=== PATIENT | male | born 2005 | race Hispanic/Latino ===

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

== ENCOUNTER 2023-05-24 17:09 | Emergency (ER) | payer OTHER, SELFPAY ==
--- NOTE | 2023-05-24 17:15 | ED.WOUNDLAC ---
HPI - Wound/Laceration General Chief Complaint: Wound/Laceration Stated Complaint: Cut finger left hand Time Seen by Provider: 05/24/23 17:14 Source: patient Mode of arrival: ambulatory Limitations: no limitations History of Present Illness HPI narrative: Patient is a 17 year old male that presents with laceration to left index finger from a glass that shattered. 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 States the more he used the finger the more it continued to bleed. Patient is also having constipation for one week. States he has been using laxative to have a bowel movement. States after taking them he is able to go and it is soft. Patient reports he knows he doesn't drink enough water. Did call PCP and was unable to get in. Related Data Allergies Allergy/AdvReac Type Severity Reaction Status Date / Time No Known Allergies Allergy Unverified 05/24/23 17:20 Review of Systems Review of Systems: All systems reviewed & are unremarkable except as noted in HPI and below Constitutional: Constitutional: Denies body ache(s), Denies chills, Denies fatigue, Denies fever(s), Denies headache(s), Denies malaise and Denies weakness Eyes: Eyes: Denies blurry vision, Denies irritation and Denies loss of vision ENT: Denies otalgia, Denies headache(s), Denies nasal discharge, Denies sinus pain and Denies sore throat Cardiovascular: Cardiovascular: Denies chest pain, Denies irregular heart rhythm and Denies dyspnea Respiratory: Respiratory: Denies dyspnea Gastrointestinal: Gastrointestinal: Denies abdominal pain, Denies melena, Denies hematochezia, Reports constipation, Denies diarrhea, Denies nausea and Denies vomiting Musculoskeletal: Musculoskeletal: Denies back pain, Denies myalgias and Denies arthralgias Integumentary/Breasts: Skin/Breast: Denies pruritus, Denies rash and Reports wounds Neurologic: Denies headache(s), Denies loss of vision and Denies weakness Psychiatric: Psychiatric: Reports no additional psychiatric complaints Endocrine: Endocrine: Denies fatigue PMFSH Comments At time of signature, agree with nursing past medical, surgical, social and family history. There is no relevant family history pertinent to the presenting complaint. Exam Const: General: cooperative, healthy appearing, comfortable, no acute distress and well nourished Nutritional Appearance: well nourished Orientation/consciousness: patient oriented x3 Limitations: no limitations HENMT: Head: normal to inspection, normocephalic and atraumatic Ears: hearing grossly normal bilaterally and external ears normal Face/Nose/Sinus: Normal external nose present, normal facial exam and face symmetric Face and sinus: normal facial exam and face symmetric Mouth: Yes lip normal Eyes: General: appearance normal, both eyes and all related structures Alignment and Position: alignment normal and position normal Periorbital: periorbital findings normal Eyelids: eyelids normal Pupils: Equal, round and reactive pupils present EOM: EOMs intact bilaterally Neck: Neck: normal visual inspection, full ROM and supple Chest: Chest palpation & inspection: normal inspection of the chest Resp: Effort & Inspection: normal respiratory effort and able to speak in complete sentences Auscultation: clear to auscultation bilaterally Cardio: Rate: regular rate Rhythm: regular rhythm Heart sounds: S1 normal heart sound present and S2 normal heart sound present GI: Inspection: normal to inspection GI Palp: No abdominal tenderness, Yes Soft to palpation, No Tenderness to palpation present (GI), No Guarding due to palpation present (GI) and No Rebound tenderness present Skin: General skin exam: normal color and no rashes or lesions noted Neuro: General: patient oriented x3 and moves all extremities Cranial nerves: Yes Equal, round and reactive pupils present Speech: normal speech Gait exam (Neuro): Normal gait present Extrem: Ge
[2023-05-24 17:23] VITALS: BP 124/76; PULSE 87; RESP 16; TEMP 36.3; O2SAT 100
[2023-05-24] MEDS: LIDOCAINE HCL 1% LOCAL INJ 2 ML AMPUL INFILTRATE (17:32)
== END 2023-05-24 18:08 | disposition home or self-care (01) ==
PROVIDERS: Emergency Provider Nurse Practitioner Family; PCP Registered Nurse
DX: S61.211A Laceration without foreign body of left index finger without damage to nail, initial encounter (principal); W25.XXXA Contact with sharp glass, initial encounter
CPT/HCPCS: 12001; 99213; G0463

== ENCOUNTER 2023-05-31 13:38 | Emergency (ER) | payer OTHER, SELFPAY ==
[2023-05-31 13:49] VITALS: BP 107/65; PULSE 82; RESP 16; TEMP 36.6; O2SAT 100
--- NOTE | 2023-05-31 13:53 | ED.WOUNDLAC ---
HPI - Wound/Laceration General Chief Complaint: Wound/Laceration Stated Complaint: SUTURE REMOVAL Time Seen by Provider: 05/31/23 13:53 Source: patient Mode of arrival: ambulatory Limitations: no limitations History of Present Illness HPI narrative: Patient is a 17-year-old male that presents for suture removal. Patient had sutures placed 1 week ago after cutting index finger with glass. Patient has follow-up appointment the 25th with PCP for annual checkup. Patient states constipation has resolved since last week. Related Data Home Medications Medication Instructions Recorded Confirmed No Home Medications 05/31/23 05/31/23 Allergies Allergy/AdvReac Type Severity Reaction Status Date / Time No Known Allergies Allergy Verified 05/31/23 14:02 Review of Systems Review of Systems: All systems reviewed & are unremarkable except as noted in HPI and below Constitutional: Constitutional: Denies body ache(s), Denies chills, Denies fatigue, Denies fever(s), Denies headache(s), Denies malaise and Denies weakness Eyes: Eyes: Denies blurry vision, Denies irritation and Denies loss of vision ENT: Denies otalgia, Denies headache(s), Denies nasal discharge, Denies sinus pain and Denies sore throat Cardiovascular: Cardiovascular: Denies chest pain, Denies irregular heart rhythm and Denies dyspnea Respiratory: Respiratory: Denies dyspnea Gastrointestinal: Gastrointestinal: Denies abdominal pain, Denies melena, Denies hematochezia, Denies diarrhea, Denies nausea and Denies vomiting Musculoskeletal: Musculoskeletal: Denies back pain, Denies myalgias and Denies arthralgias Integumentary/Breasts: Skin/Breast: Denies pruritus and Denies rash Comments: Suture removal Neurologic: Denies headache(s), Denies loss of vision and Denies weakness Psychiatric: Psychiatric: Reports no additional psychiatric complaints Endocrine: Endocrine: Denies fatigue PMFSH Comments At time of signature, agree with nursing past medical, surgical, social and family history. There is no relevant family history pertinent to the presenting complaint. Exam Const: General: cooperative, healthy appearing, comfortable, no acute distress and well nourished Nutritional Appearance: well nourished Orientation/consciousness: patient oriented x3 Limitations: no limitations HENMT: Head: normal to inspection, normocephalic and atraumatic Ears: hearing grossly normal bilaterally and external ears normal Face/Nose/Sinus: Normal external nose present, normal facial exam and face symmetric Face and sinus: normal facial exam and face symmetric Mouth: Yes lip normal Eyes: General: appearance normal, both eyes and all related structures Alignment and Position: alignment normal and position normal Periorbital: periorbital findings normal Eyelids: eyelids normal Pupils: Equal, round and reactive pupils present EOM: EOMs intact bilaterally Neck: Neck: normal visual inspection, full ROM and supple Chest: Chest palpation & inspection: normal inspection of the chest Resp: Effort & Inspection: normal respiratory effort and able to speak in complete sentences Auscultation: clear to auscultation bilaterally Cardio: Rate: regular rate Rhythm: regular rhythm Heart sounds: S1 normal heart sound present and S2 normal heart sound present GI: Inspection: normal to inspection Skin: General skin exam: normal color and no rashes or lesions noted Trauma: laceration left 2nd finger linear ([address], wound completely healed), motor nerve function intact and sensation intact Neuro: General: patient oriented x3 and moves all extremities Cranial nerves: Yes Equal, round and reactive pupils present Speech: normal speech Gait exam (Neuro): Normal gait present Extrem: General: normal to inspection, full ROM and no edema Left upper extremity: hand normal to inspection, normal capillary refill, neuromotor exam normal Details: wrist extension normal, thumb opposi
== END 2023-05-31 14:43 | disposition home or self-care (01) ==
PROVIDERS: Emergency Provider Nurse Practitioner Family; PCP Registered Nurse
DX: S61.217D Laceration without foreign body of left little finger without damage to nail, subsequent encounter (principal); W25.XXXD Contact with sharp glass, subsequent encounter
CPT/HCPCS: 99211; G0463

== ENCOUNTER 2023-09-13 15:14 | Emergency (ER) | payer OTHER, SELFPAY ==
[2023-09-13 15:23] VITALS: BP 105/53; PULSE 74; RESP 16; TEMP 37.1; O2SAT 99
--- NOTE | 2023-09-13 16:12 | ED.URI ---
HPI - URI/Sore Throat General Chief Complaint: Urogenital-Male Stated Complaint: Sore throat/right ear pain Time Seen by Provider: 09/13/23 16:02 Source: patient and RN notes reviewed Mode of arrival: ambulatory Limitations: no limitations History of Present Illness HPI Narrative: Patient presents today complaining of sore throat and right ear pain since yesterday. Denies fever, cough, congestion, rhinorrhea. 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 Currently rates his pain 04/22 and has been taking ibuprofen with some relief. Related Data Home Medications Medication Instructions Recorded Confirmed No Home Medications 05/31/23 09/13/23 Allergies Allergy/AdvReac Type Severity Reaction Status Date / Time No Known Allergies Allergy Verified 09/13/23 15:22 Review of Systems Review of Systems: CONSTITUTIONAL: Denies body aches, fever, chills, or sweats. EYES: Denies visual changes, redness, or discharge. ENT: Denies rhinorrhea, congestion. + sore throat, right ear pain CARDIOVASCULAR: Denies chest pain, palpitations, or edema. RESPIRATORY: Denies cough or dyspnea. GASTROINTESTINAL: Denies abdominal pain, nausea, vomiting, or diarrhea. GENITOURINARY: Denies dysuria or hematuria. SKIN: Denies rash, itching, or wounds. MUSCULOSKELETAL: Denies back pain, joint pain, or myalgia. NEUROLOGIC: Denies headache, numbness, tingling, or weakness. PSYCH: Denies depression or anxiety. PMFSH Comments At time of signature, I have reviewed and agree with nursing past medical, surgical, social and family history unless otherwise noted. Please see nursing chart for further information. There is no relevant family history pertinent to the presenting complaint Exam Narrative: GENERAL: Well-appearing, well-nourished, and in no acute distress. HEAD: Normocephalic, atraumatic. EYES: EOMI. No redness or drainage. Conjunctivae normal. ENT: Mucous membranes pink and moist. Nares clear. No rhinorrhea. Mild right serous effusion without evidence of bacterial infection. Left TM normal.. Throat mildly erythematous posteriorly with some clear postnasal drainage, otherwise normal. Uvula midline. NECK: Normal AROM. Supple. No lymphadenopathy. CHEST: No respiratory distress. Clear to auscultation. HEART: Regular rate and rhythm. No murmur appreciated. EXTREMITIES: Normal range of motion. No edema. SKIN: Warm, dry, no rash. Capillary refill normal. Normal skin turgor. NEURO: No focal deficits. Alert and oriented x3. Gait steady. PSYCH: Normal affect. No signs of depression or anxiety. Course Course Level of Care: Express Care Visit Vital Signs Vital signs: Vital Signs Temperature 98.7 F 09/13/23 15:23 Pulse Rate 74 09/13/23 15:23 Respiratory Rate 16 09/13/23 15:23 Blood Pressure 105/53 L 09/13/23 15:23 Pulse Oximetry 99 09/13/23 15:23 Oxygen Delivery Room Air 09/13/23 15:23 Temperature 98.7 F 09/13/23 15:23 Pulse Rate 74 09/13/23 15:23 Respiratory Rate 16 09/13/23 15:23 Blood Pressure 105/53 L 09/13/23 15:23 Pulse Oximetry 99 09/13/23 15:23 Oxygen Delivery Room Air 09/13/23 15:23 Reviewed MDM - URI/Sore Throat MDM Narrative Medical decision making narrative: Rapid strep negative. Culture pending. Symptoms likely viral in etiology. Discussed [id number] treatment for symptoms. Anticipatory guidance given. Differential Diagnosis Differential diagnosis: Likely upper respiratory infection, otitis media, viral infection, pharyngitis and other (Strep throat) Lab Data Attestation: I reviewed the patient's lab results. Labs: Strep Screen Presumptive Negative *(Reference Range: Negative)* Critical Care Time Critical Care Time Critical Care Time: No Discharge Plan Discharge Clinical Impression: Pharyngitis Qualifiers: Pharyngitis/tonsillitis etiology: unspecified et
== END 2023-09-13 16:22 | disposition home or self-care (01) ==
PROVIDERS: Emergency Provider Nurse Practitioner; PCP Registered Nurse
DX: J02.9 Acute pharyngitis, unspecified (principal); H65.91 Unspecified nonsuppurative otitis media, right ear
CPT/HCPCS: 87081; 87147; 87880; 99213; G0463

== ENCOUNTER 2024-06-03 13:07 | Emergency (ER) | payer OTHER, SELFPAY ==
[2024-06-03 13:16] VITALS: BP 126/67; PULSE 73; RESP 20; TEMP 37.3; O2SAT 100
--- NOTE | 2024-06-03 13:21 | ED.DENTAL ---
HPI - Dental/Oral General Chief complaint: Dental/Oral Stated complaint: Dental/Ear/Left Side Jaw Pain Time Seen by Provider: 06/03/24 13:21 Source: patient, RN notes reviewed and old records reviewed Mode of arrival: ambulatory Limitations: no limitations History of Present Illness HPI Narrative: Patient presents with complaints of swelling to the left side of the face. Patient reports that he frequently gets sores to the inside of his mouth, reports he got 1 few days ago and did not think much of it. States that yesterday he began to notice increased pain at the site of the sore, awakened this morning to find that the left side of his face is mildly swollen. He denies any injury or trauma. He denies any fever, chills, sweats. Voices no other concerns or complaints at this time. Related Data Allergies Allergy/AdvReac Type Severity Reaction Status Date / Time No Known Allergies Allergy Verified 06/03/24 13:13 Review of Systems Review of Systems: All systems reviewed & are unremarkable except as noted in HPI and below Constitutional: Constitutional: Reports no additional constitutional complaints ENT: Reports system reviewed and no additional complaints, except as documented and Reports as per HPI Cardiovascular: Cardiovascular: Reports no additional cardiovascular complaints Respiratory: Respiratory: Reports no additional respiratory complaints Gastrointestinal: Gastrointestinal: Reports no additional gastrointestinal complaints Integumentary/Breasts: Skin/Breast: Reports system reviewed and no additional complaints, except as docu and Reports as per HPI Exam Const: General: cooperative, no acute distress, alert and awake Orientation/consciousness: oriented to person, oriented to place and oriented to time HENMT: Head images: 1. mild swelling Ears: TM's normal bilaterally Mouth: Yes moist mucous membranes and Yes Abnormal oral and palatal mucosa present ulceration of the left buccal mucosa and ulceration Teeth and gingiva: dentition normal Neck: Lymphatic: lymphadenopathy left submandibular Resp: Effort & Inspection: normal respiratory effort and able to speak in complete sentences Auscultation: clear to auscultation bilaterally, no crackles, no rales, no rhonchi and no wheezes Cardio: Palpation: normal PMI Rate: regular rate Rhythm: regular rhythm Heart sounds: S1 normal heart sound present and S2 normal heart sound present Neuro: General: oriented to person, oriented to place and oriented to time Cranial nerves: Yes CN's II-XII intact bilaterally Psych: Appearance: grossly normal Thought process: Normal thought process present Insight: Good insight present (Psych) Judgement: Good judgement present (Psych) Course Course Level of Care: Express Care Visit Vital Signs Vital signs: Vital Signs Temperature 99.2 F 06/03/24 13:16 Pulse Rate 73 06/03/24 13:16 Respiratory Rate 20 06/03/24 13:16 Blood Pressure 126/67 06/03/24 13:16 Pulse Oximetry 100 06/03/24 13:16 Oxygen Delivery Room Air 06/03/24 13:16 Temperature 99.2 F 06/03/24 13:16 Pulse Rate 73 06/03/24 13:16 Respiratory Rate 20 06/03/24 13:16 Blood Pressure 126/67 06/03/24 13:16 Pulse Oximetry 100 06/03/24 13:16 Oxygen Delivery Room Air 06/03/24 13:16 MDM - Dental/Oral MDM Narrative Medical decision making narrative: Extremely irritated appearing ulceration to the left vehicle mucosa, associated swelling to the left side of the face that does not extend into the neck. Able to manage own secretions well, nontoxic appearing, but do believe that ulceration became infected, causing the swelling. We will start antibiotics. Patient advised to follow-up with primary care provider. Emergency department with new or worse symptoms. Discharge instructions reviewed with patient, as well as provided in writing per nursing staff. The instructions also include specific and strict return/GO TO THE ER as
== END 2024-06-03 13:45 | disposition home or self-care (01) ==
PROVIDERS: Emergency Provider Nurse Practitioner Family; PCP Registered Nurse
DX: K13.70 Unspecified lesions of oral mucosa (principal); A49.9 Bacterial infection, unspecified
CPT/HCPCS: 99213; G0463

== ENCOUNTER 2025-07-26 14:34 | Emergency (ER) | payer OTHER, SELFPAY ==
--- NOTE | ~2025-07-26 | CT_ITS ---
CT brain wo con HISTORY:headache x 6 days COMPARISON: None. TECHNIQUE: Axial images were obtained of the head without intravenous contrast. FINDINGS: No acute intracranial hemorrhage, mass effect or midline shift. No extra-axial fluid collections. The calvarium is intact. Visualized paranasal sinuses and mastoid air cells are clear. IMPRESSION: No acute intracranial hemorrhage or extra axial fluid collections. All CT scans at this facility are performed using low dose modulation techniques as appropriate to perform exam including the following: automated exposure control; use of iterative reconstruction technique; adjustment of the mA and/or kV according to patient size (this includes techniques or standardized protocols for targeted exams where dose is matched to indication/reason for exam). Reviewed, dictated and finalized at location S. IMPRESSION: No acute intracranial hemorrhage or extra axial fluid collections. All CT scans at this facility are performed using low dose modulation techniqu es as appropriate to perform exam including the following: automated exposure c ontrol; use of iterative reconstruction technique; adjustment of the mA and/or kV according to patient size (this includes techniques or standardized protocol s for targeted exams where dose is matched to indication/reason for exam).
--- OUTSIDE RECORDS SUMMARY | 2025-07-26 15:35 | XMS_ITS | Clinical Summary ---
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 Name Role Phone Unavailable Primary Care Provider Unavailabl e Social History Tobacco Use Types Packs/Day Years Used Date Smoking Tobacco: Never Assessed Sex and Gender Information Value Date Recorded Sex Assigned at Not on file Legal Sex Male 3:06 PM [employer] Gender Identity Not on file Sexual Orientation Not on file Plan of Treatment Health Maintenance Due Date Last Done Comments Hepatitis C Virus (HCV) Screening 2003 TdaP Immunization 2003 Human Papillomavirus (HPV) Immunization (1 - Male 3-dose series) 2018 Meningococcal B Immunization (1 of 2 - Standard) 2019 Hepatitis B Immunization (1 of 3 - 19+ 3-dose series) 2022 Influenza Immunization (#1) 2025 SARS-COV-2 Immunization ( - season) 2025 Respiratory Syncytial Virus (RSV) Immunization (Adult) (1 - 1-dose 75+ series) 2078 Meningococcal Immunization (ACWY) Aged Out No longer eligible based on patient's age to complete this topic Pneumococcal Immunization Combined Aged Out No longer eligible based on patient's age to complete this topic Rotavirus Immunization Aged Out No lo nger eligible based on patient's age to complete this topic
[2025-07-26 15:39] VITALS: BP 137/77; PULSE 89; RESP 16; TEMP 36.5; O2SAT 100
[2025-07-26 19:55] VITALS: BP 115/76; O2SAT 98
[2025-07-26 19:56] VITALS: O2SAT 100
--- NOTE | 2025-07-26 20:46 | ED_ITS ---
HPI - Headache General Chief Complaint: Headache Stated Complaint: right headache x6 days Time Seen by Provider: 07/26/25 20:03 History of Present Illness HPI Narrative: Patient is a 19-year-old male who presents to the ER with complaints of a 6 day long headache. He endorses a burning sensation to the scan of his head that radiates down to his neck. Patient also endorses pressure behind his right eye. He reports his symptoms worsened today. He called his primary care provider wh o advised him to come to the ER for a CT scan. Patient denies any visual changes, headache, recent fevers, sensitivity in his mouth, or shockwave down his face. He denies any medical history relevant to this ER visit. Related Data Allergies Allergy/AdvReac Type Severity Reaction Status Date / Time No Known Allergies Allergy Verified 07/26/25 14:34 Review of Systems Review of Systems: All systems reviewed & are unremarkable except as noted in HPI and below Exam Narrative: GENERAL: Well appearing, well-nourished, non-toxic, in no acute distress. HEAD: Normocephalic, atraumatic. NECK: Supple. No adenopathy, no masses. RESPIRATORY: Airway patent, respirations nonlabored. Clear to auscultation bilaterally, no rales, rhonchi, wheezing. CARDIOVASCULAR: Regular rate and rhythm without murmurs, rubs, or gallops. Peripheral pulses 2+ and equal bilaterally. ABDOMINAL: Soft, nontender, nondistended, no hepatosplenomegaly. Normoactive BS. MUSCULOSKELETAL: Moves all extremities. Strength/ROM intact without gross deformities. SKIN: Warm, dry, normal color. No rashes. NEURO: A&O X3. Speech clear. Cranial nerves II-XII intact. No ataxic movements. PSYCHIATRIC: Appropriate mood and affect. Normal interaction. Course Vital Signs Vital signs: Vital Signs Temperature 36.5 C 07/26/25 15:39 Pulse Rate 89 07/26/25 15:39 Respiratory Rate 16 07/26/25 15:39 Blood Pressure 137/77 07/26/25 15:39 Pulse Oximetry 100 07/26/25 15:39 Oxygen Delivery Room Air 07/26/25 15:39 Temperature 36.5 C 07/26/25 15:39 Pulse Rate 88 07/26/25 22:26 Respiratory Rate 18 07/26/25 22:26 Blood Pressure 122/74 07/26/25 22:26 Pulse Oximetry 100 07/26/25 22:26 Oxygen Delivery Room Air 07/26/25 15:39 MDM - Headache MDM Narrative Medical decision making narrative: Patient is a 19-year-old male who presents to the ER with complaints of a 6 day long headache. He endorses a burning sensation to the scan of his head that radiates down to his neck. Patient also endorses pressure behind his right eye. He reports his symptoms worsened today. He called his primary care provider ciro terrell advised him to come to the ER for a CT scan. Patient denies any visual changes, headache, recent fevers, sensitivity in his mouth, or shockwave down his face. He denies any medical history relevant to this ER visit. Labs Ordered: None necessary Imaging Ordered: CT head Medications Ordered: Benadryl 25 mg IV, Reglan IV, 1 L normal saline IV, magnesium IV, Decadron IV Results: Patient's CT scan indicates no acute abnormalities. Diagnosis: Migraine headache 5- Pt endorses headache relief, but is having a reaction to Reglan. Will give an additional dose of Benadryl. Patient Education/Shared MDM: Results of imaging shared with patient. He endorses significant improvement of symptoms following medication administration. Patient strongly advised to maintain hydration status upon discharge and follow-up with his PCP as needed. He will not be discharged home with any new prescriptions, but will be advised to take ibuprofen 800 mg as needed for pain control at home.. Strict return precautions provided. Patient verbalized understanding and is in agreement with plan. Vital signs stable at time of discharge. All questions answered. Differential Diagnosis Differential diagnosis: Likely migraine, tension headache, subarachnoid hemorrhage and headache Imaging Data Attestation: I personally reviewed and interpreted this imaging study as follows: Radiologist's impression: Impressions Head CT 07/26/25 21:39 IMPRESSION: No acute intracranial hemorrhage or extra axial fluid collections. All CT scans at this facility are performed using low dose modulation techniques as appropriate to perform exam including the following: automated exposure control; use of iterative reconstruction technique; adjustment of the mA and/or kV according to patient size (this includes techniques or standardized protocols for targeted exams where dose is matched to indication/reason for exam). Discharge Plan Discharge Clinical Impression: Headache, Migraine Patient Disposition: Home Condition: Stable Instructions: Antibiotic Form, Migraine Headache (ED), Tension Headache (ED) Additional Instructions: Please return to the ER with any worsening symptoms. Follow-up with primary care provider as needed. You may take Tylenol and ibuprofen together as needed for pain control. Please remember to drink lots of water. Patient Language: Khmer Prescriptions: New ibuprofen 800 mg tablet 800 mg PO TID Qty: 30 0RF No Action amoxicillin-pot clavulanate 875-125 mg tablet 1 tablet PO Q12H Qty: 20 0RF Follow-up/Referrals: Bernard,VAISHALI Hunter [Primary Care Provider] Stand Alone Forms: Work/School Release IP Time of Disposition: 22:39
[2025-07-26] MEDS: MAGNESIUM SULF 1 GM/D5W 100 ML 1 GM/100 ML BAG IVPB (21:05)
[2025-07-26] MEDS: METOCLOPRAMIDE HCL INJ 10 MG/2 ML VIAL IV PUSH (21:06)
[2025-07-26] MEDS: dexAMETHasone SOD PHOS INJ 10 MG/ML 1 ML VIAL IV PUSH (21:06)
[2025-07-26] MEDS: SODIUM CHLORIDE 0.9% IV 1,000 ML 999 ML IV CONT (21:07)
[2025-07-26 21:46] VITALS: BP 136/79; PULSE 98; RESP 20; O2SAT 100
[2025-07-26 22:26] VITALS: BP 122/74; PULSE 88; RESP 18; O2SAT 100
== END 2025-07-26 22:45 | disposition home or self-care (01) ==
PROVIDERS: Emergency Provider Registered Nurse; PCP Registered Nurse
DX: G43.909 Migraine, unspecified, not intractable, without status migrainosus (principal)
CPT/HCPCS: 70450; 96365; 96375; 99284; J1100; J1200; J2765; J3475; J7030